=== PATIENT | male | born 1980 | race American Indian/Alaskan Native ===

== ENCOUNTER 2018-06-18 14:59 | Emergency (ER) | payer OTHER ==
--- NOTE | 2018-06-18 15:13 | Emergency Department Report ---
Chief Complaint: Medical Clearance Stated Complaint: MH EVAL/DEPRESSION/ANXIETY Time Seen by Provider: 06/18/18 15:10 - HPI History of Present Illness: This is a 38 y.o. male that presents to ER with possible depression. Patient states symptoms occurred for several weeks. He drinks alcohol and mother was concerned. Denies SI/HI. - Exam Vital Signs: Vital Signs 06/18/18 15:10 Temperature 98.4 F Pulse Rate 104 H Respiratory 20 Rate Blood Pressure 206/115 O2 Sat by Pulse 99 Oximetry MSE screening note: Focused history and physical exam performed. Due to findings the following was ordered: Labs ED Disposition for MSE Condition: Stable
[2018-06-18 16:18] LABS: Basophils % (Auto) 0.3 % (0.0-1.8); Eosinophils # (Auto) 0.1 K/mm3 (0.0-0.4); Eosinophils % (Auto) 2.4 % (0.0-4.3); Hemoglobin 14.8 gm/dl (11.8-15.2); Lymphocytes # (Auto) 2.3 K/mm3 (1.2-5.4); Lymphocytes % (Auto) 38.5 % (13.4-35.0); Mean Corpuscular HGB Conc 34 % (32-34); Mean Corpuscular Volume 96 fl (84-94); Monocytes # (Auto) 0.4 K/mm3 (0.0-0.8); Monocytes % (Auto) 6.9 % (0.0-7.3); Platelet Count 232 K/mm3 (140-440); Red Blood Count 4.48 M/mm3 (3.65-5.03); Red Cell Distribution Width 13.9 % (13.2-15.2)
[2018-06-18 16:39] LABS: BUN/Creatinine Ratio 10; Blood Urea Nitrogen 8 mg/dL (9-20); Calcium 10.2 mg/dL (8.4-10.2); Hemolysis Index 15
[2018-06-18 16:43] LABS: Amphetamine Screen,Urine PRESUMPTIVE NEGATIVE; Benzodiazepines Screen,Urine PRESUMPTIVE NEGATIVE; Cocaine Screen,Urine PRESUMPTIVE NEGATIVE; Methadone Screen,Urine PRESUMPTIVE NEGATIVE; Opiate Screen,Urine PRESUMPTIVE NEGATIVE
[2018-06-18 16:44] LABS: Bilirubin,Urine NEG (Negative); Blood,Urine NEG (Negative); Color,Urine Yellow (Yellow); Mucus,Urine FEW /HPF; Urobilinogen,Urine < 2.0 mg/dL (<2.0); WBC,Urine < 1.0 /HPF (0.0-6.0)
[2018-06-18 16:56] LABS: Cannabinoid Screen,Urine PRESUMPTIVE POSITIVE
[2018-06-18] MEDS ORDERED: CATAPRES PO ONE (20:34)
--- NOTE | 2018-06-18 20:51 | Emergency Department Report ---
ED Psych HPI - General Chief Complaint: Anxiety Stated Complaint: MH EVAL/DEPRESSION/ANXIETY Time Seen by Provider: 06/18/18 15:10 Source: patient Mode of arrival: Ambulatory Limitations: No Limitations - History of Present Illness Initial Comments: 38-year-old male with past medical history hypertension not currently on medications presents to the hospital complaining of depression, anxiety, and racing thoughts. He is stressed out about his life responsibilities including work and family. Patient admits to occasional marijuana use and alcohol use. Has not used alcohol in 1 month visits with the patient states that he has been off meds for quite some time and has been trying holistic measures. He is not been monitoring his pressure. He denies his complaint, pain free, and denies suicidal/homicidal ideation, or visual/auditory hallucinations - Related Data Previous Rx's Medication Instructions Recorded Last Taken Type Cyclobenzaprine HCl [FLEXERIL] 10 mg PO Q8H PRN #21 tablet 02/01/13 Unknown Rx Hydrocodone Bit/Acetaminophen 1 each PO Q6H PRN #16 tablet 02/01/13 Unknown Rx [Lortab 10-500 mg] amLODIPine [Norvasc] 10 mg PO DAILY #30 tab 06/18/18 Unknown Rx metFORMIN [Glucophage] 500 mg PO BID #60 tablet 06/18/18 Unknown Rx Allergies Allergy/AdvReac Type Severity Reaction Status Date / Time No Known Allergies Allergy Unverified 02/01/13 11:05 ED Review of Systems ROS: Stated complaint: MH EVAL/DEPRESSION/ANXIETY Other details as noted in HPI Comment: All other systems reviewed and negative ED Past Medical Hx - Past Medical History Previous Medical History?: Yes Hx Hypertension: Yes (No meds) - Surgical History Past Surgical History?: Yes Additional Surgical History: Left patellar tendon - Social History Smoking Status: Never Smoker Substance Use Type: None - Medications Home Medications: Home Medications Medication Instructions Recorded Confirmed Last Taken Type Cyclobenzaprine HCl [FLEXERIL] 10 mg PO Q8H PRN #21 tablet 02/01/13 Unknown Rx Hydrocodone Bit/Acetaminophen 1 each PO Q6H PRN #16 tablet 02/01/13 Unknown Rx [Lortab 10-500 mg] amLODIPine [Norvasc] 10 mg PO DAILY #30 tab 06/18/18 Unknown Rx metFORMIN [Glucophage] 500 mg PO BID #60 tablet 06/18/18 Unknown Rx ED Physical Exam - General Limitations: No Limitations - Other Other exam information: General: No limitations, patient is alert in no acute distress Head exam: Atraumatic, normocephalic Eyes exam: Normal appearance, pupils equal reactive to light, extraocular movements intact ENT: Moist mucous membrane, normal oropharynx Neck exam: Normal inspection, full range of motion, no meningismus nontender Respiratory exam: Clear to auscultation bilateral, no wheezes, rales, crackles Cardiovascular: Normal rate and rhythm Abdomen: Soft, nondistended, and nontender, with normal bowel sounds, no rebound, or guarding Extremity: Full range of motion normal inspection no deformity Back: Normal Inspection, full range of motion, no tenderness Neurologic: Alert, oriented x3, cranial nerves intact, no motor or sensory deficit Psychiatric: normal affect, normal mood Skin: Warm, dry, intact ED Course Vital Signs 06/18/18 06/18/18 06/18/18 15:10 20:25 22:13 Temperature 98.4 F 98.5 F Pulse Rate 104 H 87 75 Respiratory 20 18 Rate Blood Pressure 206/115 Blood Pressure 184/113 158/102 [Left] O2 Sat by Pulse 99 100 Oximetry ED Medical Decision Making - Lab Data Result diagrams: 06/18/18 15:18 06/18/18 15:18 Lab Results 06/18/18 06/18/18 06/18/18 Range/Units 15:18 15:18 15:18 WBC (4.5-11.0) K/mm3 RBC (3.65-5.03) M/mm3 Hgb (11.8-15.2) gm/dl Hct (35.5-45.6) % MCV (84-94) fl MCH (28-32) pg MCHC (32-34) % RDW (13.2-15.2) % Plt Count (140-440) K/mm3 Lymph % (Auto) (13.4-35.0) % [place] % (Auto) (0.0-7.3) % Eos % (Auto) (0.0-4.3) % Baso % (Auto) (0.0-1.8) % Lymph # (1.2-5.4) K/mm3 [place] # (0.0-0.8) K/mm3 Eos # (0.0-0.4) K/mm3 Baso # (0.0-0.1) K/mm3 Seg Neutrophils % (40.0-70.0) % Seg Neutrophils # (1.8-7.7) K/mm3 Sodium 141 (137-145) mmol/L Potassium 3.8 (3.6-5.0) mmol/L Chloride 98.9 (98-107) mmol/L Carbon Dioxide 28 (22-30) mmol/L Anion Gap 18 mmol/L BUN 8 L (9-20) mg/dL Creatinine 0.8 (0.8-1.5) mg/dL Estimated GFR > 60 ml/min BUN/Creatinine Ratio 10 % Glucose 228 H (75-100) mg/dL POC Glucose (70-105) Hemoglobin A1c (4-6) % Calcium 10.2 (8.4-10.2) mg/dL Urine Color (Yellow) Urine Turbidity (Clear) Urine pH (5.0-7.0) Ur Specific [place] (1.003-1.030) Urine Protein (Negative) mg/dL Urine Glucose (UA) (Negative) mg/dL Urine Ketones (Negative) mg/dL Urine Blood (Negative) Urine Nitrite (Negative) Urine Bilirubin (Negative) Urine Urobilinogen (<2.0) mg/dL Ur Leukocyte Esterase (Negative) Urine WBC (Auto) (0.0-6.0) /HPF Urine RBC (Auto) (0.0-6.0) /HPF U Epithel Cells (Auto) (0-13.0) /HPF Urine Mucus /HPF Salicylates < 0.3 L (2.8-20.0) mg/dL Urine Opiates Screen Urine Methadone Screen Acetaminophen < 5.0 L (10.0-30.0) ug/mL Ur Barbiturates Screen Ur Phencyclidine Scrn Ur Amphetamines Screen U Benzodiazepines Scrn Urine Cocaine Screen U Marijuana (THC) Screen Drugs of Abuse Note Plasma/Serum Alcohol (0-0.07) % 06/18/18 06/18/18 06/18/18 Range/Units 15:18 15:18 15:18 WBC 6.1 (4.5-11.0) K/mm3 RBC 4.48 (3.65-5.03) M/mm3 Hgb 14.8 (11.8-15.2) gm/dl Hct 43.0 (35.5-45.6) % MCV 96 H (84-94) fl MCH 33 H (28-32) pg MCHC 34 (32-34) % RDW 13.9 (13.2-15.2) % Plt Count 232 (140-440) K/mm3 Lymph % (Auto) 38.5 H (13.4-35.0) % [place] % (Auto) 6.9 (0.0-7.3) % Eos % (Auto) 2.4 (0.0-4.3) % Baso % (Auto) 0.3 (0.0-1.8) % Lymph # 2.3 (1.2-5.4) K/mm3 [place] # 0.4 (0.0-0.8) K/mm3 Eos # 0.1 (0.0-0.4) K/mm3 Baso # 0.0 (0.0-0.1) K/mm3 Seg Neutrophils % 51.9 (40.0-70.0) % Seg Neutrophils # 3.2 (1.8-7.7) K/mm3 Sodium (137-145) mmol/L Potassium (3.6-5.0) mmol/L Chloride (98-107) mmol/L Carbon Dioxide (22-30) mmol/L Anion Gap mmol/L BUN (9-20) mg/dL Creatinine (0.8-1.5) mg/dL Estimated GFR ml/min BUN/Creatinine Ratio % Glucose (75-100) mg/dL POC Glucose (70-105) Hemoglobin A1c 8.4 H (4-6) % Calcium (8.4-10.2) mg/dL Urine Color (Yellow) Urine Turbidity (Clear) Urine pH (5.0-7.0) Ur Specific [place] (1.003-1.030) Urine Protein (Negative) mg/dL Urine Glucose (UA) (Negative) mg/dL Urine Ketones (Negative) mg/dL Urine Blood (Negative) Urine Nitrite (Negative) Urine Bilirubin (Negative) Urine Urobilinogen (<2.0) mg/dL Ur Leukocyte Esterase (Negative) Urine WBC (Auto) (0.0-6.0) /HPF Urine RBC (Auto) (0.0-6.0) /HPF U Epithel Cells (Auto) (0-13.0) /HPF Urine Mucus /HPF Salicylates (2.8-20.0) mg/dL Urine Opiates Screen Urine Methadone Screen Acetaminophen (10.0-30.0) ug/mL Ur Barbiturates Screen Ur Phencyclidine Scrn Ur Amphetamines Screen U Benzodiazepines Scrn Urine Cocaine Screen U Marijuana (THC) Screen Drugs of Abuse Note Plasma/Serum Alcohol < 0.01 (0-0.07) % 06/18/18 06/18/18 06/18/18 Range/Units 15:35 15:35 21:51 WBC (4.5-11.0) K/mm3 RBC (3.65-5.03) M/mm3 Hgb (11.8-15.2) gm/dl Hct (35.5-45.6) % MCV (84-94) fl MCH (28-32) pg MCHC (32-34) % RDW (13.2-15.2) % Plt Count (140-440) K/mm3 Lymph % (Auto) (13.4-35.0) % [place] % (Auto) (0.0-7.3) % Eos % (Auto) (0.0-4.3) % Baso % (Auto) (0.0-1.8) % Lymph # (1.2-5.4) K/mm3 [place] # (0.0-0.8) K/mm3 Eos # (0.0-0.4) K/mm3 Baso # (0.0-0.1) K/mm3 Seg Neutrophils % (40.0-70.0) % Seg Neutrophils # (1.8-7.7) K/mm3 Sodium (137-145) mmol/L Potassium (3.6-5.0) mmol/L Chloride (98-107) mmol/L Carbon Dioxide (22-30) mmol/L Anion Gap mmol/L BUN (9-20) mg/dL Creatinine (0.8-1.5) mg/dL Estimated GFR ml/min BUN/Creatinine Ratio % Glucose (75-100) mg/dL POC Glucose 160 H (70-105) Hemoglobin A1c (4-6) % Calcium (8.4-10.2) mg/dL Urine Color Yellow (Yellow) Urine Turbidity Clear (Clear) Urine pH 8.0 H (5.0-7.0) Ur Specific [place] 1.023 (1.003-1.030) Urine Protein 30 mg/dl (Negative) mg/dL Urine Glucose (UA) 50 (Negative) mg/dL Urine Ketones Neg (Negative) mg/dL Urine Blood Neg (Negative) Urine Nitrite Neg (Negative) Urine Bilirubin Neg (Negative) Urine Urobilinogen < 2.0 (<2.0) mg/dL Ur Leukocyte Esterase Neg (Negative) Urine WBC (Auto) < 1.0 (0.0-6.0) /HPF Urine RBC (Auto) 4.0 (0.0-6.0) /HPF U Epithel Cells (Auto) 1.0 (0-13.0) /HPF Urine Mucus Few /HPF Salicylates (2.8-20.0) mg/dL Urine Opiates Screen Presumptive negative Urine Methadone Screen Presumptive negative Acetaminophen (10.0-30.0) ug/mL Ur Barbiturates Screen Presumptive negative Ur Phencyclidine Scrn Presumptive negative Ur Amphetamines Screen Presumptive negative U Benzodiazepines Scrn Presumptive negative Urine Cocaine Screen Presumptive negative U Marijuana (THC) Screen Presumptive positive Drugs of Abuse Note Disclamer Plasma/Serum Alcohol (0-0.07) % - Medical Decision Making Patient was see clonidine 0.1 mg by mouth with improvement in BP. Presents a symptomatic hypertension and long-time medication noncompliance. No signs of hypertensive emergency. Patient does not meet 1013 criteria for depression and anxiety. Provide outpatient referrals. Patient noted be hyperglycemic with an elevated hemoglobin A1c. Glucose improvement without ED intervention. Patient encouraged to follow up with her primary care doctor for diabetes and will be placed on a months supply of metformin 500 twice a day. - Differential Diagnosis depression, anxiety, substance abuse, psychosis, hypertensive urgency Critical Care Time: No Critical care attestation.: If time is entered above; I have spent that time in minutes in the direct care of this critically ill patient, excluding procedure time. ED Disposition Clinical Impression: Depression, Uncontrolled hypertension, Diabetes Disposition: [id number] TO HOME OR SELFCARE Is pt being admited?: No Does the pt Need Aspirin: No Condition: Stable Instructions: Hypertension (ED), Diabetes Mellitus Type 2 in Adults (ED), Depression (ED), Suicide Prevention for Adults (ED) Additional Instructions: Take the medication as prescribed. Follow up with your doctor or the clinic/doctor provided. You are being started on blood pressure medication today. You are also be started on diabetes medication for her elevated hemoglobin A1c of 8.4. It is very important for you to follow up with a primary care doctor and psychiatrist for further management of your illnesses.. Return if symptoms worsen as indicated by your discharge instructions. Prescriptions: metFORMIN [Glucophage] 500 mg PO BID #60 tablet amLODIPine [Norvasc] 10 mg PO DAILY #30 tab Referrals: KETAN AYALA MD [Primary Care Provider] - 3-5 Days [facility] [Outside] - 3-5 Days Time of Disposition: 22:38
[2018-06-18 22:14] VITALS: BP 158/102
== END 2018-06-18 22:54 | disposition home or self-care (01) ==
LOC: ED 14:59
DX: F32.9 Major depressive disorder, single episode, unspecified (principal); I10 Essential (primary) hypertension; E11.9 Type 2 diabetes mellitus without complications; F12.10 Cannabis abuse, uncomplicated; Z79.899 Other long term (current) drug therapy
CPT/HCPCS: 36415; 80048; 80307; 81001; 82962; 83036; 85025; 99284; G0480; 80320